=== PATIENT | male | born 1970 | race Caucasian/White ===

== ENCOUNTER 2022-05-15 10:11 | Emergency (ER) | payer BC, SELFPAY ==
--- NOTE | ~2022-05-15 | XR_ITS ---
EXAMINATION: XR CHEST CLINICAL INFORMATION: Shortness of breath. Worsens when lying down. COMPARISON: CXR from 06/10/2009 TECHNIQUE: 2 views of the chest were obtained. FINDINGS: Lungs are well expanded. No acute findings compared to prior chest radiograph. No pulmonary edema or consolidation. Chronic minimal pleural thickening of the right lateral costophrenic sulcus. Cardiac silhouette is mildly enlarged. No cephalization of pulmonary venous flow. Old, healed fracture of the mid third of left clavicle. Mild multilevel discovertebral degenerative change of the thoracic spine. XR/XR chest 2V IMPRESSION: Mild cardiomegaly. However, no evidence of active congestive heart failure.
[2022-05-15 10:22] VITALS: BP 150/86; PULSE 95; RESP 20; TEMP 36.6; O2SAT 99; BMI 30.8
[2022-05-15 11:55] VITALS: BP 131/84; PULSE 88; TEMP 37.1; O2SAT 98
--- NOTE | 2022-05-15 12:17 | ECG_ITS ---
Test Reason : SOB Blood Pressure : / mmHG Vent. Rate : 087 BPM Atrial Rate : 087 BPM P-R Int : 156 ms QRS Dur : 100 ms QT Int : 366 ms P-R-T Axes : 063 -14 100 degrees QTc Int : 440 ms Sinus rhythm with occasional Premature ventricular complexes Biatrial enlargement Left ventricular hypertrophy ( Fam product ) T wave abnormality, consider lateral ischemia Abnormal ECG No previous ECGs available Referred By: Grant Jaffe Electronically Signed By:Kenan Fox
[2022-05-15 13:09] LABS: Basophils Absolute Auto 0.2 X10*3/uL (0.0-0.2); Basophils Percent Auto 1.7 % (0-2); Eosinophils Absolute Auto 0.3 X10*3/uL (0.0-0.4); Eosinophils Percent Auto 2.7 % (0-4); Hemoglobin 14.9 g/dl (14.0-18.0); Imm Gran Abs Auto 0.05 X10*3/uL (0.00-0.03); Imm Gran Pct Auto 0.5 % (0.0-0.4); Lymphocytes Absolute Auto 2.5 X10*3/uL (1.2-4.9); Lymphocytes Percent Auto 22.9 % (20-40); MANUAL DIFF FLAG SCAN; Mean Corpuscular HGB Conc 29.2 g/dl (31.0-36.0); Mean Corpuscular Hemoglobin 20.1 pg (27.0-33.0); Mean Corpuscular Volume 68.6 fL (80.0-98.0); Mean Platelet Volume 10.4 fL (9.4-12.4); Monocytes Absolute Auto 1.5 X10*3/uL (0.1-1.2); Monocytes Percent Auto 13.6 % (2-11); Neutrophils Absolute Auto 6.5 x10*3/uL (2.0-8.3); Neutrophils Percent Auto 58.6 % (45-73); Platelet Count 379 X10*3/uL (160-400); Red Blood Count 7.43 X10*6/uL (4.60-5.80); Red Cell Distribution Width 20.8 % (11.0-16.0); SCAN SMEAR FLAG 1; White Blood Count 11.1 X10*3/uL (4.8-10.8)
[2022-05-15 13:17] LABS: INTERNATIONAL NORM RATIO 1.1 (0.9-1.1); Prothrombin Time 12.2 SEC (10.0-13.1)
[2022-05-15 13:19] LABS: D Dimer High Sensitivity 155 NG/ML
[2022-05-15 13:20] LABS: Partial Thromboplastin Time 32.3 SEC (26.0-36.4)
[2022-05-15 13:32] LABS: SLIDE REVIEW VERIFIED
[2022-05-15 13:33] LABS: Alanine Aminotransferase 35 U/L (0-40); Albumin Level 4.3 g/dL (3.5-5.0); Alkaline Phosphatase 61 U/L (39-117); Anion Gap 14 (12-20); Aspartate Amino Transferase 33 U/L (5-37); Bilirubin Total 0.7 mg/dL (0.0-1.0); Blood Urea Nitrogen 17 mg/dL (9-16); Calcium 8.7 mg/dL (8.4-10.2); Carbon Dioxide 27 mmol/L (22-29); Chloride 101 mmol/L (96-108); Creatinine Clr Calc Pharmacy 90.1; Estimated Glomerular Filt Rate > 60; Glucose Random 113 mg/dL (60-115); Sodium 137 mmol/L (135-145)
[2022-05-15 13:35] LABS: Troponin-I High Sensitivity 35.5 ng/L (<3.5-35.0)
[2022-05-15 13:39] LABS: B Type Natriuretic Peptide 123 pg/mL (<100)
[2022-05-15 13:44] LABS: Influenza A PCR NEGATIVE (Negative); Influenza B PCR NEGATIVE (Negative); Resp Syncy Virus RNA Qual PCR NEGATIVE (Negative); SARS COV2 PCR INHOUSE NEGATIVE (Negative)
[2022-05-15 14:41] VITALS: BP 118/79; PULSE 76; RESP 16; TEMP 36.9; O2SAT 97
[2022-05-15 16:29] LABS: Troponin-I High Sensitivity 31.8 ng/L (<3.5-35.0)
--- NOTE | 2022-05-15 16:44 | PC.NURSE ---
pt awaiting PA to come speak with them, troponin did go down on second lab draw
--- NOTE | 2022-05-15 16:46 | ED.GENADULT ---
HPI - General Adult General Chief complaint: Upper Respiratory Symptoms Stated complaint: Difficulty breathing Time Seen by Provider: 05/15/22 12:04 Source: patient Mode of arrival: ambulatory Limitations: no limitations History of Present Illness HPI narrative: 51-year-old male presents to ED for shortness of breath for the past 6 months due to COVID. Patient states since having COVID 6 months ago at times he will have random episodes of shortness of breath and then it will resolve. Patient states the last month or so he has had 2 sit-up or sleep sitting up. Patient states not able to tolerate lying flat. Patient denies any leg swelling, coughing up blood, chest pain, or pleurisy. Patient denies any fever or chills. Patient states no recent long travel, recent surgery, or any estrogen hormonal use. Patient states pretty healthy and works out. Related Data Previous Rx's Medication Instructions Recorded albuterol sulfate 90 mcg/actuation 2 puff inhalation Q4-6H PRN 05/15/22 aerosol inhaler shortness of breath or wheezing #8.5 grams Allergies Allergy/AdvReac Type Severity Reaction Status Date / Time No Known Allergies Allergy Unverified 01/22/20 15:59 Review of Systems Review of Systems: SOB for the past 6 months Yes all other systems are reviewed and are negative FORMERLY [facility], [facility]–1983 Social History Social History Advance Directives: No Advance Directives Information Provided: No Physical Exam ED Vital Signs: Vital Signs - 24 hr 05/15/22 10:22 05/15/22 11:55 05/15/22 14:41 Temperature 98 F 98.7 F 98.5 F Pulse Rate 95 88 76 Respiratory Rate 20 16 Blood Pressure 150/86 H 131/84 118/79 Pulse Oximetry 99 98 97 Oxygen Delivery Method Room Air Room Air Room Air BMI result Body Mass Index 30.8 Const General: cooperative, healthy appearing, comfortable, no acute distress, well developed, alert, awake and Physically active Orientation/consciousness: oriented to person, oriented to place, oriented to time and patient oriented x3 HENMT Head: Yes normal to inspection, Yes No palpable skull fracture present, Yes normocephalic, Yes atraumatic and No abrasion Eyes General: appearance normal, both eyes and all related structures Neck Neck: Yes normal visual inspection, Yes full ROM, Yes no lymphadenopathy, Yes no meningeal signs, Yes trachea midline, Yes supple, No anterior neck swelling and No tender Chest Chest palpation & inspection: normal inspection of the chest and normal palpation of entire chest wall Resp Effort & Inspection: normal respiratory effort and able to speak in complete sentences Auscultation: clear to auscultation bilaterally Cardio Jugular venous distension: no JVD Heart sounds: S1 normal heart sound present and S2 normal heart sound present GI Inspection: Yes normal to inspection and No abdominal wall ecchymosis Palpation (GI): Soft to palpation, not firm, nontender, no guarding and not rigid General: No CVA tenderness and Yes no CVA tenderness Back/Spine/Pelvis Back: no CVA tenderness, No CVA tenderness and No back tenderness Skin General skin exam: no rashes or lesions noted and elasticity normal Neuro General: oriented to person, oriented to place, oriented to time, patient oriented x3, gait normal, tone normal, moves all extremities, Normal light touch and pain sensation, no meningeal signs, no focal motor deficits, CN's II-XI intact bilaterally and normal sensation to monofilament Extrem Other: Bilateral lower extremities negative for swelling, pitting edema, calf tenderness General: Yes normal to inspection and Yes full ROM Psych Appearance: grossly normal, well kempt and not disheveled Course Course Course Narrative: Most likely patient has long haul COVID but we will do medical evaluation including EKG, troponin, BNP, chest x-ray, and D-dimer. Reevaluation(s) Reevaluation #1: D-dimer negative. Wells criteria is 0. Chest x-ray shows mild cardiomegaly but negative for signs of congestive heart failure. BNP 123. EKG negative STEMI. Troponins negative. Chest x-ray negative pneumonia. SARS negative. Patient has appointment this Sunday for his chronic shortness of breath for the past 6 months. Patient given copy of labs and imaging for follow-up Time: 16:54 Medications Administered Discontinued Medications Generic Name Dose Route Start Last Admin Trade Name Freq PRN Reason Stop Dose Admin Albuterol Sulfate 2 puff 05/15/22 17:01 05/15/22 17:20 Albuterol Sulfate 90 Mcg 8 Gm Inhaler INHALE 05/15/22 17:02 2 puff ONCE ONE Administration Medical Decision Making Medical Decision Making MDM Narrative: 51-year-old male with COVID 6 months ago presenting for shortness of breath for the past 6 months. Patient pretty healthy due to age will do cardiac evaluation. Patient not in distress. Patient well-appearing. Differential Diagnosis Differential Diagnoses: The differential diagnosis associated with the presentation includes (CHF, pneumonia, PE, mI, covid) Admission/Observation If patient worsens or meet medical admission criteria will observe for admit Lab Data MDM Lab Attestation statement: I reviewed the patient's lab results. 05/15/22 13:00 05/15/22 13:00 Labs: Lab Results 05/15/22 05/15/22 05/15/22 Range/Units 13:00 13:00 13:00 WBC 11.1 H (4.8-10.8) X10*3/uL RBC 7.43 H (4.60-5.80) X10*6/uL Hgb 14.9 (14.0-18.0) g/dl Hct 51.0 (42.0-52.0) % MCV 68.6 L (80.0-98.0) fL MCH 20.1 L (27.0-33.0) pg MCHC 29.2 L (31.0-36.0) g/dl RDW 20.8 H (11.0-16.0) % Plt Count 379 (160-400) X10*3/uL MPV 10.4 (9.4-12.4) fL Immature Gran % (Auto) 0.5 H (0.0-0.4) % Neut % (Auto) 58.6 (45-73) % Lymph % (Auto) 22.9 (20-40) % [place] % (Auto) 13.6 H (2-11) % Eos % (Auto) 2.7 (0-4) % Baso % (Auto) 1.7 (0-2) % Lymph # (Auto) 2.5 (1.2-4.9) X10*3/uL [place] # (Auto) 1.5 H (0.1-1.2) X10*3/uL Eos # (Auto) 0.3 (0.0-0.4) X10*3/uL Baso # (Auto) 0.2 (0.0-0.2) X10*3/uL Abs Immat Gran (auto) 0.05 H (0.00-0.03) X10*3/uL Absolute Neuts (auto) 6.5 (2.0-8.3) x10*3/uL Absolute Nucleated RBC 0.000 (0.0-0.012) X10*3/uL Nucleated RBC % (auto) 0.0 (0.0-0.2) /100WBC Smear Tech's Comments VERIFIED PT (10.0-13.1) SEC INR (0.9-1.1) APTT (26.0-36.4) SEC D-Dimer High Sensitivty 155 NG/ML Sodium 137 (135-145) mmol/L Potassium 5.0 (3.3-5.1) mmol/L Chloride 101 (96-108) mmol/L Carbon Dioxide 27 (22-29) mmol/L Anion Gap 14 (12-20) BUN 17 H (9-16) mg/dL Creatinine 1.11 (0.5-1.4) mg/dL Estim Creat Clear Calc 90.1 Estimated GFR > 60 Random Glucose 113 (60-115) mg/dL Calcium 8.7 (8.4-10.2) mg/dL Total Bilirubin 0.7 (0.0-1.0) mg/dL AST 33 (5-37) U/L ALT 35 (0-40) U/L Alkaline Phosphatase 61 (39-117) U/L Troponin I High Sens (<3.5-35.0) ng/L B-Natriuretic Peptide (<100) pg/mL Total Protein 7.0 (6.5-8.0) g/dL Albumin 4.3 (3.5-5.0) g/dL Influenza Type A (PCR) (Negative) Influenza Type B (PCR) (Negative) RSV RNA Qual (PCR) (Negative) SARS-CoV-2 RNA (RT-PCR) (Negative) 05/15/22 05/15/22 05/15/22 Range/Units 13:00 13:00 13:00 WBC (4.8-10.8) X10*3/uL RBC (4.60-5.80) X10*6/uL Hgb (14.0-18.0) g/dl Hct (42.0-52.0) % MCV (80.0-98.0) fL MCH (27.0-33.0) pg MCHC (31.0-36.0) g/dl RDW (11.0-16.0) % Plt Count (160-400) X10*3/uL MPV (9.4-12.4) fL Immature Gran % (Auto) (0.0-0.4) % Neut % (Auto) (45-73) % Lymph % (Auto) (20-40) % [place] % (Auto) (2-11) % Eos % (Auto) (0-4) % Baso % (Auto) (0-2) % Lymph # (Auto) (1.2-4.9) X10*3/uL [place] # (Auto) (0.1-1.2) X10*3/uL Eos # (Auto) (0.0-0.4) X10*3/uL Baso # (Auto) (0.0-0.2) X10*3/uL Abs Immat Gran (auto) (0.00-0.03) X10*3/uL Absolute Neuts (auto) (2.0-8.3) x10*3/uL Absolute Nucleated RBC (0.0-0.012) X10*3/uL Nucleated RBC % (auto) (0.0-0.2) /100WBC Smear Tech's Comments PT (10.0-13.1) SEC INR (0.9-1.1) APTT (26.0-36.4) SEC D-Dimer High Sensitivty NG/ML Sodium (135-145) mmol/L Potassium (3.3-5.1) mmol/L Chloride (96-108) mmol/L Carbon Dioxide (22-29) mmol/L Anion Gap (12-20) BUN (9-16) mg/dL Creatinine (0.5-1.4) mg/dL Estim Creat Clear Calc Estimated GFR Random Glucose (60-115) mg/dL Calcium (8.4-10.2) mg/dL Total Bilirubin (0.0-1.0) mg/dL AST (5-37) U/L ALT (0-40) U/L Alkaline Phosphatase (39-117) U/L Troponin I High Sens 35.5 H (<3.5-35.0) ng/L B-Natriuretic Peptide 123 H (<100) pg/mL Total Protein (6.5-8.0) g/dL Albumin (3.5-5.0) g/dL Influenza Type A (PCR) NEGATIVE (Negative) Influenza Type B (PCR) NEGATIVE (Negative) RSV RNA Qual (PCR) NEGATIVE (Negative) SARS-CoV-2 RNA (RT-PCR) NEGATIVE (Negative) 05/15/22 05/15/22 Range/Units 13:00 15:59 WBC (4.8-10.8) X10*3/uL RBC (4.60-5.80) X10*6/uL Hgb (14.0-18.0) g/dl Hct (42.0-52.0) % MCV (80.0-98.0) fL MCH (27.0-33.0) pg MCHC (31.0-36.0) g/dl RDW (11.0-16.0) % Plt Count (160-400) X10*3/uL MPV (9.4-12.4) fL Immature Gran % (Auto) (0.0-0.4) % Neut % (Auto) (45-73) % Lymph % (Auto) (20-40) % [place] % (Auto) (2-11) % Eos % (Auto) (0-4) % Baso % (Auto) (0-2) % Lymph # (Auto) (1.2-4.9) X10*3/uL [place] # (Auto) (0.1-1.2) X10*3/uL Eos # (Auto) (0.0-0.4) X10*3/uL Baso # (Auto) (0.0-0.2) X10*3/uL Abs Immat Gran (auto) (0.00-0.03) X10*3/uL Absolute Neuts (auto) (2.0-8.3) x10*3/uL Absolute Nucleated RBC (0.0-0.012) X10*3/uL Nucleated RBC % (auto) (0.0-0.2) /100WBC Smear Tech's Comments PT 12.2 (10.0-13.1) SEC INR 1.1 (0.9-1.1) APTT 32.3 (26.0-36.4) SEC D-Dimer High Sensitivty NG/ML Sodium (135-145) mmol/L Potassium (3.3-5.1) mmol/L Chloride (96-108) mmol/L Carbon Dioxide (22-29) mmol/L Anion Gap (12-20) BUN (9-16) mg/dL Creatinine (0.5-1.4) mg/dL Estim Creat Clear Calc Estimated GFR Random Glucose (60-115) mg/dL Calcium (8.4-10.2) mg/dL Total Bilirubin (0.0-1.0) mg/dL AST (5-37) U/L ALT (0-40) U/L Alkaline Phosphatase (39-117) U/L Troponin I High Sens 31.8 (<3.5-35.0) ng/L B-Natriuretic Peptide (<100) pg/mL Total Protein (6.5-8.0) g/dL Albumin (3.5-5.0) g/dL Influenza Type A (PCR) (Negative) Influenza Type B (PCR) (Negative) RSV RNA Qual (PCR) (Negative) SARS-CoV-2 RNA (RT-PCR) (Negative) Independent Interpretation I performed an independent interpretation of an: EKG Interpretation: Sinus rhythm with occasional PVCs. Reticular 87. Pr interval 156. QRS 100. QTC 440. Negative STEMI Radiology Impression Discussion of test interpretation with radiology: I have reviewed the radiologist's reading. (mild cardiomegaly. no CHF or pneumonia) Prescription Management I considered prescription management with: Other (albuterol inhaler) Discharge Plan Discharge Clinical Impression: Dyspnea Patient Disposition: Home, Self-Care Instructions: How to Use a Metered-Dose Inhaler (ED), Dyspnea (ED) Additional Instructions: You will be given copy of the blood work, EKG, and chest x-ray for follow-up with the primary care provider. Return to the ED for any leg swelling, calf pain, coughing up blood, fever, chills, chest pain, shortness of breath, dizziness, passing out, or any other concerning symptoms. You will be discharged with albuterol inhaler. Prescriptions: New albuterol sulfate 90 mcg/actuation HFA aerosol inhaler 2 puff inhalation Q4-6H PRN (Reason: shortness of breath or wheezing) Qty: 8.5 0RF Referrals: Hasmukh Osorio MD [Physician] - (SOB for 6 months. Ritchie aparicio) Interventions: ED Discharge Assessment Last Done: 05/15/22 17:20 Discharge Date/Time: 05/15/22 17:21 Print Language: Pakistani
[2022-05-15] MEDS: Albuterol Sulfate 90 MCG 8 GM INHALER 2 PUFF INHALE (17:20)
== END 2022-05-15 17:21 | disposition home or self-care (01) ==
PROVIDERS: Physician Assistant; Emergency Provider Student in an Organized Health Care Education/Training Program
DX: R06.02 Shortness of breath (principal); Z20.822 Contact with and (suspected) exposure to COVID-19; Z20.828 Contact with and (suspected) exposure to other viral communicable diseases
CPT/HCPCS: 0241U; 36415; 71046; 80053; 83880; 84484; 85025; 85379; 85610; 85730; 93005; 99284

== ENCOUNTER 2025-01-28 08:40 | Outpatient (REF) | payer MEDICAID, SELFPAY ==
--- OUTSIDE RECORDS SUMMARY | 2025-01-27 09:00 | XMS_ITS | Encounter Summary ---
Author Organization [employer] Address [address] [facility] [address] [place] [address] Care Team Providers Care Marine Erector Name Role Phone Darinel Metcalf MD Primary Care Prov ider Encounter Details Date Type Department Care Team ([facility] st Contact Info) Description 01/27/2025 9:00 AM EDT Office Visit [facility] [address] [place], [place] [phone] Darinel Metcalf MD [address] [place] [address] Chronic congestive heart failure, unspecified heart failure type (CMS/HCC) (Primary Dx); Drug-induced erectile dysfunction Social History Tobacco Use Types Packs/Day Years Used Date Smoking Tobacco: Never Passive Smoke Exposure: Never Smokeless Tobacco: Never Alcohol Use Standard Drinks/Week Comments Never 0 (1 standard drink = 0.6 oz pur e alcohol) Depression Answer Date Recorded Patient Health Questionnaire-9 Score 0 10/21/2024 Patient Health Questionnaire-9 Score 0 10/21/2024 Last PHQ-9: Questionnaire Data Not on file 0 10/21/2024 Housing Stability Answer Date Recorded What is your housing situation today? I have wanda soto 01/20/[address] you li ve. Do you have problems with any of the following? None of the above;I am not sure 01/20/2025 Food Insecurity Answer Date Recorded Within the past 12 months, y ou worried that your food would run out before you got money to buy more: Never True 01/20/2025 Within the past 12 months,th e food you bought just didn't last and you didn't have enough money to get more: Never True Transportation Answer Date Recorded In the past 12 months, has l ack of transportation kept you from medical appts, meetings, work or from getting things needed for daily living? No 01/20/2025 Utilities Answer Date Recorded In the past 12 months, has t he electric, gas, oil or water company threatened to shut off services in your home? No 01/20/2025 Depression Answer Date Recorded Patient Health Questionnaire-2 Score 0 10/21/2024 Internet Access Answer Date Recorded Internet Access Q1 Yes 01/20/2025 Internet Access Q2 Not on file 01/20/2025 Sex and Gender Information Value Date Recorded Sex Assigned at Male 03/06/2022 10:27 AM EDT Legal Sex Male 10:27 AM EDT Gender Identity Male 03/06/2022 10:27 AM EDT Sexual Orientation Don't know 03/06/2022 10 :27 AM EDT documented as of this encounter Last Filed Vital Signs Vital Sign Reading Time Taken Comments Blood Pressure 110/64 01/27/2025 9:08 AM EDT Pulse 92 01/27/2025 9:08 AM EDT Temperature 36.7 C (98 F) 01/27/2025 9:08 AM EDT Respiratory Rate 20 01/27/2025 9:08 AM EDT Oxygen Saturation - - Inhaled Oxygen Concentration - - Weight 89.8 kg (198 lb) 01/27/2025 9:08 AM EDT Height 177.8 cm (5' 10 ) 01/27/2025 9:08 AM EDT Body Mass Index 28.41 01/27/2025 9:08 AM EDT documented in this encounter Progress Notes * Darinel Franz MD - 01/27/2025 9:00 AM EDT Subjective Patient ID: Aravind Vergara is a 54 y.o. male who presents for No chief complaint on file.. Hypertension This is a chronic problem. The problem is controlled. Pertinent negatives include no chest pain, headaches, palpitations, peripheral edema or shortness of breath. Review of Systems Respiratory: Negative for shortness of breath. Cardiovascular: Negative for chest pain and palpitations. Neurological: Negative for headaches. Objective Physical Exam Constitutional: Appearance: Normal appearance. Cardiovascular: Rate and Rhythm: Normal rate. Heart sounds: No murmur heard. Pulmonary: Effort: Pulmonary effort is normal. No respiratory distress. Breath sounds: No stridor. No wheezing or rhonchi. Abdominal: General: Abdomen is flat. There is no distension. Palpations: There is no mass. Tenderness: There is no abdominal tenderness. Hernia: No hernia is present. Neurological: General: No focal deficit present. Mental Status: He is alert and oriented to person, place, and time. Psychiatric: Mood and Affect: Mood normal. Behavior: Behavior normal. Assessment/Plan Problem List Items Addressed This Visit Chronic congestive heart failure, unspecified heart failure type (CMS/HCC) - Primary Followed by cardiology, no changes will be made, no chest pain or shortness of breath reported Relevant Medications tadalafil (Cialis) 10 MG tablet Other Relevant Orders CBC auto differential Comprehensive Metabolic Panel Lipid Panel, Standard TSH W/Reflex to FT4 HIV-1/2 Antigen and Antibodies, Fourth Generation, with Reflexes Hepatitis C Antibody with Reflex to HCV, RNA, Quantitative, Real-Time PCR PSA, Total With Reflex to PSA, Free Testosterone, Free (Dialysis) And Total, MS Drug-induced erectile dysfunction Will change to cialis to be taken daily and to take an extra dose the day of activity, call back ifnot improving documented in this encounter Miscellaneous Notes * Assessment & Plan Note - Darinel Franz MD - 01/27/2025 9:38 AM EDTAssociated Problem(s): Drug-induced erectile dysfunction Will change to cialis to be taken daily and to take an extra dose the day of activity, call back ifnot improving * Assessment & Plan Note - Darinel Franz MD - 01/27/2025 9:38 AM EDTAssociated Problem(s): Chronic congestive heart failure, unspecified heart failure type (CMS/HCC) Followed by cardiology, no changes will be made, no chest pain or shortness of breath reported documented in this encounter Plan of Treatment Upcoming Encounters Date Type Department Care Team (Late st Contact Info) Description 02/02/2025 1:30 PM EDT Office Visit [facility] [address] [place] [address] Lonny John MD [address] [place], [place] [phone] 03/30/2025 2:30 PM EST Office Visit [facility] [address], [place] [phone] Lonny John MD [address] [place], [place] [phone] Scheduled Orders Name Type Priority Associated Diagnoses Orde r Schedule CBC auto differential Lab Routine Chronic congestive heart failure, unspecified heart failure type (CMS/HCC) Expected: 01/27/2025 (Approximate), Expires: 01/27/2026 Comprehensive Metabolic Panel Lab Routine Chronic congestive heart failure, unspecified heart failure type (CMS/HCC) Expected: 01/27/2025 (Approximate), Expires: 01/27/2026 Lipid Panel, Standard Lab Routine Chronic congestive heart failure, unspecified heart failure type (CMS/HCC) Expected: 01/27/2025 (Approximate), Expires: 01/27/2026 TSH W/Reflex to FT4 Lab Routine Chronic congestive heart failure, unspecified heart failure type (CMS/HCC) Expected: 01/27/2025 (Approximate), Expires: 01/27/2026 HIV-1/2 Antigen and Antibodies, Fourth Generation, with Reflexes Lab Routine Chronic congestive heart failure, unspecified heart failure type (CMS/HCC) Expected: 01/27/2025 (Approximate), Expires: 01/27/2026 Hepatitis C Antibody with Reflex to HCV, RNA, Quantitative, Real-Time PCR Lab Routine Chronic congestive heart failure, unspecified heart failure type (CMS/HCC) Expected: 01/27/2025, Expires: 01/27/2026 PSA, Total With Reflex to PSA, Free Lab Routine Chronic congestive heart failure, unspecified heart failure type (CMS/HCC) Expected: 01/27/2025 (Approximate), Expires: 01/27/2026 Testosterone, Free (Dialysis) And Total, MS Lab Routine Chronic congestive heart failure, unspecified heart failure type (CMS/HCC) Expected: 01/27/2025 (Approximate), Expires: 01/27/2026 documented as of this encounter Goals Goal Patient Goal Type Associated Problems Recent Progress Patient-Stated? Author Increase coping skills to promote long-term recovery and improve ability to perform daily activities General María Carrasco RN documented as of this encounter Visit Diagnoses Diagnosis Chronic congestive heart failure, unspecified heart failure type (CMS/HCC)- Primary Drug-induced erectile dysfunction documented in this encounter Additional Health Concerns Assessment Noted Time PHQ-9 Depression Total Score: 0 10/22/19 25 10:00 AM EDT documented as of this encounter Care Teams Marine Erector Relationship Specialty Start Date End Date Darinel Metcalf MD [address] [place] [id number] PCP - General Internal Medicine 09/26/19 documented as of this encounter
--- OUTSIDE RECORDS SUMMARY | 2025-01-28 09:44 | XMS_ITS | Encounter Summary ---
Author Organization [employer] Address [address] [facility] [address] [place] [address] Care Team Providers Care Visual Effects Artist Name Role Phone Darinel Metcalf MD Primary Care Prov ider Reason for Visit * Reason Comments Med Refill Encounter Details Date Type Department Care Team (Late st Contact Info) Description 11/28/[address] [facility] [address] [place] [address] Darinel Metcalf MD [address] [place] [address] Social History Tobacco Use Types Packs/Day Years Used Date Smoking Tobacco: Never Passive Smoke Exposure: Never Smokeless Tobacco: Never Alcohol Use Standard Drinks/Week Comments Never 0 (1 standard drink = 0.6 oz pur e alcohol) Depression Answer Date Recorded Patient Health Questionnaire-9 Score 0 10/21/2024 Patient Health Questionnaire-9 Score 0 10/21/2024 Last PHQ-9: Questionnaire Data Not on file 0 10/21/2024 Depression Answer Date Recorded Patient Health Questionnaire-2 Score 0 10/21/2024 Sex and Gender Information Value Date Recorded Sex Assigned at Male 03/06/2022 10:27 AM EDT Legal Sex Male 10:27 AM EDT Gender Identity Male 03/06/2022 10:27 AM EDT Sexual Orientation Don't know 03/06/2022 10 :27 AM EDT documented as of this encounter Plan of Treatment Upcoming Encounters Date Type Department Care Team (Late Contact Info) Description 02/02/2025 1:30 PM EDT Office Visit [facility] [address] [place] [address] Lonny John MD [address] [place], [place] [phone] 03/30/2025 2:30 PM EST Office Visit [facility] [address] [place] [address] Lonny John MD [address] [place], [place] [phone] documented as of this encounter Goals Goal Patient Goal Type Associated Problems Recent Progress Patient-Stated? Author Increase coping skills to promote long-term recovery and improve ability to perform daily activities General María Carrasco, DIANA documented as of this encounter Visit Diagnoses Not on filedocumented in this encounter Additional Health Concerns Assessment Noted Time PHQ-9 Depression Total Score: 0 10/22/19 25 10:00 AM EDT documented as of this encounter Care Teams Visual Effects Artist Relationship Specialty Start Date End Date Darinel Metcalf MD [address] [place] [address] PCP - General Internal Medicine 09/26/19 documented as of this encounter
--- OUTSIDE RECORDS SUMMARY | 2025-01-28 09:45 | XMS_ITS | Encounter Summary ---
Author Organization [employer] Address [address] [facility] [address] [place] [address] Care Team Providers Care Clothing Worker Name Role Phone Darinel Metcalf MD Primary Care Prov ider Encounter Details Date Type Department Care Team (Latest Contact Info) Description 01/27/2025 Travel Social History Tobacco Use Types Packs/Day Years [...] Description 02/02/2025 1:30 PM EDT Office Visit [facility] [address] [place], [place] [phone] Lonny John MD [address] [place] [address] 03/30/2025 2:30 PM EST Office Visit [facility] [address] [place] [address] Lonny John MD [address] [place] [address] documented as of this encounter Goals Goal Patient Goal Type Associated Problems Recent Progress Patient-Stated? Author Increase coping skills to promote long-term recovery and improve ability to perform daily activities General No María Chandler, RN documented as of this encounter Visit Diagnoses Not on filedocumented in this encounter Additional Health Concerns Assessment Noted Time PHQ-9 Depression Total Score: 0 10/22/19 25 10:00 AM EDT documented as of this encounter Care Teams Clothing Worker Relationship Specialty Start Date End Date Darinel Metcalf MD [address] [place], [place] [phone] PCP - General Internal Medicine 09/26/19 documented as of this encounter
--- OUTSIDE RECORDS SUMMARY | 2025-01-28 09:45 | XMS_ITS ---
Author Name [facility] Organization Unknown Care Team Organization Name Specialty Phone Email Start Date End Da te [facility] Rajiv Jacome Primary Care 09/11/202212/[address] [facility] Sandra Gabriel Primary Care 03/14/202212/23
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
--- OUTSIDE RECORDS SUMMARY | 2025-01-28 09:45 | XMS_ITS | Encounter Summary ---
Author Organization [employer] Address [address] [facility] [address] [place] [address] Care Team Providers Care Hybrid Powertrain Development Engineer Name Role Phone Darinel Metcalf MD Primary Care Prov ider Encounter Details Date Type Department Care Team ([facility] Contact Info) Description 12/26/2023 Orders Only [facility] [address] [place] [id number] Renetta Damon MD [address] [place] [id number] Opioid dependence, uncomplicated (CMS/LTAC, [facility]) Social History Tobacco Use Types Packs/Day Years Used Date Smoking Tobacco: Never Assessed Sex and Gender Information Value Date Recorded Sex Assigned at Male 03/06/2022 10:27 AM EDT Legal Sex Male 10:27 AM EDT Gender Identity Male 03/06/2022 10:27 AM EDT Sexual Orientation Don't know 03/06/2022 10 :27 AM EDT documented as of this encounter Plan of Treatment Upcoming Encounters Date Type Department Care Team (Late Contact Info) Description 02/02/2025 1:30 PM EDT Office Visit [facility] [address] [place] [address] Lonny John MD [address] [place] [phone] 03/30/2025 2:30 PM EST Office Visit [facility] [address] [place] [address] Lonny John MD [address] [place] [phone] documented as of this encounter Visit Diagnoses Diagnosis Opioid dependence, uncomplicated (CMS/HCC) documented in this encounter Care Teams Hybrid Powertrain Development Engineer Relationship Specialty Start Date End Date Darinel Metcalf MD [address] [place] [address] PCP - General Internal Medicine 09/26/19 documented as of this encounter
--- OUTSIDE RECORDS SUMMARY | 2025-01-28 09:45 | XMS_ITS | Clinical Summary ---
Author Organization [facility] Address [address] [facility] [address] [place] [phone] Phone Care Team Providers Care National Recruiter Name Role Phone Sandra Beltrán MD Primary Care Provider [phone] Allergies No known active allergies Medications erythromycin (ROMYCIN) ophthalmic ointment Place 0.5 inches into the left eye every 6 (six) hours. 3.5 g 1 12/07/2021 Active Social History Tobacco Use Types Packs/Day Years Used Date Smoking Tobacco: Never Assessed Education Answer Date Recorded Are you interested in more education? Not on susi e 09/01/2022 Are you concerned about learning? Not on file 09/01/2022 No 09/01/2022 No 09/01/2022 Digital Access Answer Date Recorded No 10/02/2022 No 10/02/2022 Reliable internet access at home? Not on file 10/02/2022 Device with a working camera? Not on file Sex and Gender Information Value Date Recorded Sex Assigned at Not on file Legal Sex Male 9:36 PM EDT Gender Identity Not on file Sexual Orientation Not on file Last Filed Vital Signs Vital Sign Reading Time Taken Comments Blood Pressure 144/87 12/07/2021 11:34 AM EDT Pulse 89 12/07/2021 11:34 AM EDT Temperature 36.5 C (97.7 F) 12/07/2021 11:34 AM EDT Respiratory Rate 20 12/07/2021 11:34 AM EDT Oxygen Saturation 99% 12/07/2021 11:34 AM EDT Inhaled Oxygen Concentration - - Weight 99.8 kg (220 lb) 12/07/2021 11:34 AM EDT Height 177.8 cm (5' 10 ) 12/07/2021 11:34 AM EDT Body Mass Index 31.57 12/07/2021 11:34 AM EDT Plan of Treatment Health Maintenance Due Date Last Done Comments LIPID PANEL 1968 DEPRESSION SCREENING 1980 SMOKING Hx and SMOKELESS TOB ACCO SCREENING 1981 HEPATITIS C SCREENING 1986 HIV ONE-TIME SCREENING (18-6 5 YEARS) 1986 COLOGUARD 2013 COLONOSCOPY 2013 COLORECTAL CANCER SCREENING 2013 FIT TEST 2013 FOBT 2013 SIGMOIDOSCOPY 2013 VIRTUAL COLONOSCOPY 2013 PNEUMOCOCCAL VACCINES (50+ y ears) (1 of 1 - PCV) 2018 ZOSTER VACCINES (1 of 2) 2018 Adult Td,Tdap Booster 07/30/2024 07/30/2014 INFLUENZA VACCINE (#1) 2024 COVID-19 VACCINE (1 - 2023-2 5 season) 2025 HEPATITIS A VACCINES Aged Out No long er eligible based on patient's age to complete this topic HIB VACCINES Aged Out No longer eligi ble based on patient's age to complete this topic MENINGOCOCCAL VACCINES (ACWY) Aged Out No longer eligible based on patient's age to complete this topic MENINGOCOCCAL VACCINES (B) Aged Out N o longer eligible based on patient's age to complete this topic Medical Devices Not on file Insurance [employer] LIMITED NETWORK HMO NETWORK O NETWORK O NETWORK O [employer] LIMITED NETWORK HMO simple[employer] [facility] LIMITED NETWORK HMO [employer] LIMITED NETWORK HMO BLUE [employer]OSS [employer] LIMITED NETWORK HMO NETWORK HMO AIM [employer]URANCE Care Teams National Recruiter Relationship Specialty Start Date End Date Sandra Beltrán MD [address] [place] [address] PCP - General 06/13/21 Additional Source Comments The information contained in this document represents components of the legal health record. It is not the complete legal health record.[facility]
--- OUTSIDE RECORDS SUMMARY | 2025-01-28 09:45 | XMS_ITS | Clinical Summary ---
Author Organization [employer] Address [address] [facility] 7t [place] [address] Care Team Providers Care Fuel Pilot Engineer Name Role Phone Darinel Metcalf MD Primary Care Prov ider Allergies No known active allergies Medications Multiple Vitamins-Mineral s (MENS MULTIPLUS PO) Mens MultiPlus A ctive naloxone (Narcan) 4 mg/0.1 mL nasal spray Administer 0.1 mL into affected nostril(s). 020 Active omeprazole OTC (PriLOSEC OTC) 20 MG EC tablet 1 tablet in the morning. Active betamethasone valerate (Valisone) 0.1 % cream Apply topically if needed in the morning and at bedtime (dryness). 45 g 2 025 Active clotrimazole (Lotrimin) 1 % cream Apply topically 2 times daily. 90 g 3 025 Active Buprenorphine HCl-Naloxone HCl (Suboxone) 8-2 MG SL filmIndications: Opioid dependence, uncomplicated (CMS/HCC) Place 1 Film under the tongue 2 times daily. 56 Film 2 025 2024 Active tadalafil (Cialis) 10 MG tablet Take 1 tablet (10 mg) by mouth if needed each day for erectile dysfunction. 60 tablet 3 025 2024 Active sildenafil (Viagra) 50 MG tablet Take 1 tablet (50 mg) by mouth if needed each day for erectile dysfunction. 30 tablet 025 2024 Discontinued sildenafil (Viagra) 50 MG tablet TAKE 1 TABLET (50 MG) BY MOUTH DAILY NEEDED FOR ERECTILE DYSFUNCTION 30 tablet 025 2024 Discontinued(I neffective) Active Problems Problem Noted Date Diagnosed Date Drug-induced erectile dysfunction 11/10/2024 Assessment & Plan (01/27/2025 9:38 AM EDT): Will change to cialis to be taken daily and to take an extra dose the day of activity, call back if not improving Assessment & Plan (11/10/2024 1:49 PM EDT): Patient noticed worsening of symptoms after metoprolol dose increased, he disscussed with symptoms with his cloth calender but the benefits of the treatment were superior to the side effects. Will start on sildenafil as needed, call back if not improving Encounter for medical examination to establish c are 10/21/2024 Assessment & Plan (10/21/2024 10:17 AM EDT): Last pcp visit more than 2 years ER: - Hospitalization:- Pmhx: cardiomyopathy, rash Pshx: ICD 18 months ago ALL:- Meds: prilosec, multivitamin, entresto 49/51, metoprolol 50mg daily, farxiga 10mg, spironolactone 25mg daily, furosemide 20mg BID Colonoscopy done 5 years ago, will refer to GI Opioid type dependence, continuous 10/21/2024 Chronic congestive heart alexis lure, unspecified heart failure type 10/21/2024 Assessment & Plan (01/27/2025 9:38 AM EDT): Followed by cardiology, no changes will be made, no chest pain or shortness of breath reported Assessment & Plan (10/21/2024 10:39 AM EDT): Followed by cardiology, s/p icd placed 18 months ago, on entresto, spironolactone, metoprolol and farxiga S/P ICD (internal cardiac defibrillator) procedu re 10/21/2024 Erythrocytosis 10/15/2017 Gastroesophageal reflux disease 07/30/2014 Assessment & Plan (10/21/2024 10:38 AM EDT): On prilosec, no changes will be made, reinforced lifestyle modifications Low back pain 07/30/2014 Encounters Date Type Department Care Team Description 01/27/2025 9:00 AM EDT Office Visit [facility] [address] [place] [address] Darinel Metcalf MD Chronic congestive heart failure, unspecified heart failure type (CMS/HCC) (Primary Dx); Drug-induced erectile dysfunction 01/27/2025 Travel 01/23/2025 Telephone [facility] [address] [place] [address] Darinel Metcalf MD chart prep 01/20/2025 Patient Outreach [facility] [address] [place] [address] Darinel Metcalf MD Pre-visit Planning (SDOH screening negative and Tobacco screening negative) 01/04/2025 Refill [facility] [address] [place] [address] Katie Salgado MD 12/22/2024 Telephone [facility] [address] [place] [address] Darinel Metcalf MD No Show 12/22/2024 Telephone [facility] [address] [place] [address] Darinel Metcalf MD 12/22/2024 Travel 12/19/2024 Telephone [facility] [address] [place] [address] Darinel Metcalf MD chart prep 11/28/2024 Refill [facility] [address] [place] [address] Darinel Metcalf MD 11/28/2024 Refill [facility] [address] [place] [address] Darinel Metcalf MD 11/10/2024 1:30 PM EDT Office Visit [facility] [address] [place] [address] Lonny John MD Opioid dependence, uncomplicated (CMS/HCC) (Primary Dx) 11/10/2024 11:15 AM EDT Office Visit [facility] [address] [place] [address] Darinel Metcalf MD Drug-induced erectile dysfunction (Primary Dx) 11/10/2024 Travel 11/10/2024 Telephone [facility] [address] [place] [address] Darinel Metcalf MD Nurse Triage 11/03/2024 Telephone [facility] [address] [place] [address] Darinel Metcalf MD requesting call back] from Last 3 Months Immunizations Immunization Administration Dates Next Due Tdap 07/30/2014 Family History Medical History Relation Name Comments Breast cancer Mother Relation Name Status Comments Mother Social History Tobacco Use Types Packs/Day Years Used Date Smoking Tobacco: Never Passive Smoke Exposure: Never Smokeless Tobacco: Never Tobacco Cessation:Counseling Given: Not Answered Alcohol Use Standard Drinks/Week Comments Never 0 [...] Don't know 03/06/2022 10 :27 AM EDT Last Filed Vital Signs Vital Sign Reading Time Taken Comments Blood Pressure 110/64 01/27/2025 9:08 AM EDT Pulse 92 01/27/2025 9:08 AM EDT Temperature 36.7 C (98 F) 01/27/2025 9:08 AM EDT Respiratory Rate 20 01/27/2025 9:08 AM EDT Oxygen Saturation 98% 11/10/2024 11:25 AM EDT Inhaled Oxygen Concentration - - Weight 89.8 kg (198 lb) 01/27/2025 9:08 AM EDT Height 177.8 cm (5' 10 ) 01/27/2025 9:08 AM EDT Body Mass Index 28.41 01/27/2025 9:08 AM EDT Plan of Treatment Upcoming Encounters Date Type Department Care Team (Late st Contact Info) Description 02/02/2025 1:30 PM EDT Office Visit [facility] [address] [place] [address] Lonny John MD [address] [place] [address] 03/30/2025 2:30 PM EST Office Visit [facility] [address] [place] [address] Lonny oJhn MD [address] [place] [address] Health Maintenance Due Date Last Done Comments CT Colonography 1968 Colonoscopy 1968 Colorectal Cancer Screening 1968 FIT DNA/Cologuard 1968 FIT 1968 FOBT 1968 HIV Screening 1968 Lipid Panel 1968 Sigmoidoscopy 1968 HIB Vaccines (1 of 1 - Risk 1-dose series) 01/17/1970 Meningococcal Vaccine (1 - Risk 2-dose series) 1970 Meningococcal B Vaccine (1 o f 5 - Increased Risk) 1978 Hepatitis C Screening 1986 Hepatitis B Vaccines (1 of 3 - 19+ 3-dose series) 10/18/1987 Pneumococcal Vaccine: 50+ Years (1 of 2 - PCV) 10/18/1987 Zoster Vaccines (1 of 2) 2018 DTaP/Tdap/Td Vaccines (2 - T d or Tdap) 07/30/2024 07/30/2014, 05/07/2008 COVID-19 Vaccine (1 - 2023-2 5 season) 2025 Influenza Vaccine (#1) 2025 Depression Screening 10/21/2025 10/21/2024, 10/21/2024 Tobacco Screening 11/10/2025 11/10/2024 SDOH Screening 01/20/2026 01/20/2025 Alcohol/Substance Use Screening 01/27/2026 01/27/2025 Disability Screening 01/27/2026 01/27/2025 RSV Patients and Patients Aged 60 years or older (1 - 1-dose 75+ series) 10/18/2043 HPV Vaccines Aged Out No longer eligi ble based on patient's age to complete this topic Hepatitis A Vaccines Aged Out No long er eligible based on patient's age to complete this topic IPV Vaccines Aged Out No longer eligi ble based on patient's age to complete this topic RSV under 20 months Aged Out No longe r eligible based on patient's age to complete this topic Rotavirus Vaccines Aged Out No longer eligible based on patient's age to complete this topic Goals Goal Patient Goal Type Associated Problems Recent Progress Patient-Stated? Author Increase coping skills to promote long-term recovery and improve ability to perform daily activities General No María Chandler, RN Insurance [facility] C3 Care Teams Fuel Pilot Engineer Relationship Specialty Start Date End Date Darinel Metcalf MD [address] [place] [phone] PCP - General Internal Medicine 09/26/19
--- OUTSIDE RECORDS SUMMARY | 2025-01-28 09:45 | XMS_ITS | Encounter Summary ---
Author Organization [facility] Address [address] [facility] [address] [place] [address] Phone Care Team Providers Care Theoretical Physics Teacher Name Role Phone Sandra Beltrán MD Primary Care Provider [phone] Encounter Details Date Type Department Care Team (Late st Contact Info) Description 12/07/2021 Procedure [facility], Ct Scan - [address] [address] Social History Tobacco Use Types Packs/Day Years Used Date Smoking Tobacco: Never Assessed Sex and Gender Information Value Date Recorded Sex Assigned at Not on file Legal Sex Male 9:36 PM EDT Gender Identity Not on file Sexual Orientation Not on file documented as of this encounter Functional Status * Calculated C-SSRS Risk Score (Lifetime/Recent) Answer Date of Assessment Author No Risk Indicated 12/07/2021 11:36 AM EDT Kitty Deleon RN * [place] Suicide Severity Rating Scale (Screener/Recent Self-Report) Question Answer Date of Assessment Author 1. Wish to be (Past 1 Month) No 12/07/2021 11:36 AM EDT Kitty Sutherland RN 2. Non-Specific Active Suici joseph Thoughts (Past 1 Month) No 12/07/2021 11:36 AM EDT Edel Sutherland cia, RN 6. Suicidal Behavior (Lifetime) No 11:36 AM EDT Kitty Sutherland RN documented as of this encounter Plan of Treatment Not on file documented as of this encounter Visit Diagnoses Not on filedocumented in this encounter Care Teams Theoretical Physics Teacher Relationship Specialty Start Date End Date Sandra Beltrán MD [address] [place] [address] PCP - General 06/13/21 documented as of this encounter Additional Source Comments The information contained in this document represents components of the legal health record. It is not the complete legal health record.[facility]
--- OUTSIDE RECORDS SUMMARY | 2025-01-28 09:45 | XMS_ITS | Encounter Summary ---
Author Organization [employer] Address [address] [place] [address] [address] [place] [address] Care Team Providers Care Cigar Patcher Name Role Phone Darinel Metcalf MD Primary Care Prov ider Reason for Visit * Reason Comments Med Refill Encounter Details Date Type Department Care Team ([facility] st Contact Info) Description 02/21/2024 Refill [facility] [address] [place] [address] Renetta Damon MD [address] [place] [address] Opioid dependence, uncomplicated (CMS/HCC) Social History Tobacco Use Types Packs/Day Years [...] Description 02/02/2025 1:30 PM EDT Office Visit [facility] [address] [place], [place] [phone] Lonny John MD [address] [place] [address] 03/30/2025 2:30 PM EST Office Visit [facility] [address] [place], [place] [phone] Lonny John MD [address] [place] [address] documented as of this encounter Visit Diagnoses Diagnosis Opioid dependence, uncomplicated (CMS/HCC) documented in this encounter Care Teams Cigar Patcher Relationship Specialty Start Date End Date Darinel Metcalf MD [address] [place] [address] PCP - General Internal Medicine 09/26/19 documented as of this encounter
--- OUTSIDE RECORDS SUMMARY | 2025-01-28 09:45 | XMS_ITS | Encounter Summary ---
Author Organization [employer] Address [address] [facility] 7 [place] [address] Care Team Providers Care Real Estate Assessor Name Role Phone Darinel Metcalf MD Primary Care Prov ider Reason for Visit * Reason Onset Date Comments chart prep 01/23/2025 Encounter Details Date Type Department Care Team ([facility] Contact Info) Description 01/23/2025 Telephone [facility] [address] [place], [place] [phone] Darinel Metcalf MD [address] [place] [address] chart prep Social History Tobacco Use Types Packs/Day Years [...] AM EDT documented as of this encounter Miscellaneous Notes * Telephone Encounter - Kate Gonsalves [place] - 01/23/2025 2:52 PM EDT Chart Prep Labs: done Images: done Referrals: complete Vaccines due: Covid, Flu, PCV20, Tdap, Hep B, Zoster, HIB, and MMR Screenings: colonoscopy Overdue care gaps: SBIRT and Disability screen documented in this encounter Plan of Treatment Upcoming Encounters Date Type Department Care Team (Late st Contact Info) Description 02/02/2025 1:30 PM EDT Office Visit [facility] [address] [place] [address] Lonny John MD [address] [place] [address] 03/30/2025 2:30 PM EST Office Visit [facility] [address] [place] [address] Lonny John MD [address] [place] [address] documented as of this encounter Goals Goal Patient Goal Type Associated Problems Recent Progress Patient-Stated? Author Increase coping skills to promote long-term recovery and improve ability to perform daily activities General No María Chandler RN documented as of this encounter Visit Diagnoses Not on filedocumented in this encounter Additional Health Concerns Assessment Noted Time PHQ-9 Depression Total Score: 0 10/22/19 25 10:00 AM EDT documented as of this encounter Care Teams Real Estate Assessor Relationship Specialty Start Date End Date BowerDarinel Franco MD [address] [place] [address] PCP - General Internal Medicine 09/26/19 documented as of this encounter
[2025-01-28 14:33] LABS: MANUAL DIFF FLAG NO
[2025-01-28 14:38] LABS: Hematocrit 54.1 % (42.0-52.0); Hemoglobin 16.1 g/dl (14.0-18.0); Imm Gran Abs Auto 0.03 X10*3/uL (0.00-0.03); Imm Gran Pct Auto 0.3 % (0.0-0.4); Lymphocytes Absolute Auto 2.9 X10*3/uL (1.2-4.9); Mean Corpuscular HGB Conc 29.8 g/dl (31.0-36.0); Mean Corpuscular Hemoglobin 21.2 pg (27.0-33.0); Mean Corpuscular Volume 71.3 fL (80.0-98.0); NRBC Abs Auto 0.000 X10*3/uL (0.0-0.012); NRBC Pct Auto 0.0 /100WBC (0.0-0.2); Platelet Count 496 X10*3/uL (160-400); Red Blood Count 7.59 X10*6/uL (4.60-5.80); White Blood Count 10.6 X10*3/uL (4.8-10.8)
[2025-01-28 15:26] LABS: Alanine Aminotransferase 36 U/L (0-40); Albumin Level 4.3 g/dL (3.5-5.0); Alkaline Phosphatase 58 U/L (39-117); Anion Gap 12 (12-20); Aspartate Amino Transferase 48 U/L (5-37); Blood Urea Nitrogen 25 mg/dL (9-16); Calcium 9.1 mg/dL (8.4-10.2); Carbon Dioxide 31 mmol/L (22-29); Chloride 101 mmol/L (96-108); Cholesterol 131 mg/dL (<200); Estimated Glomerular Filt Rate 58; HDL Cholesterol 29 mg/dL (>40); PSA,Total (Free>4and<10) 1.48 ng/mL (0.00-4.00); Potassium 4.3 mmol/L (3.3-5.1); Sodium 140 mmol/L (135-145); Total Protein 7.1 g/dL (6.5-8.0); Triglycerides 72 mg/dL (<150)
[2025-01-29 04:51] LABS: HIV Num 1 0.06 S/CO (0.00-0.99); ~HepC Num1 0.08 S/CO (0.00-0.79); ~Hepatitis C Antibody Nonreactive (Nonreactive)
[2025-02-03 14:54] LABS: Testosterone, Free 569.3 pg/mL (35.0-155.0)
== END 2025-01-28 08:41 | disposition home or self-care (01) ==
LOC: HO.CHCLDS 08:40
PROVIDERS: Visit Provider Internal Medicine
DX: Z11.4 Encounter for screening for human immunodeficiency virus [HIV] (principal); I50.9 Heart failure, unspecified; Z11.59 Encounter for screening for other viral diseases
CPT/HCPCS: 36415; 80053; 80061; 84153; 84402; 84403; 84443; 85025; 86803; 87389

== ENCOUNTER 2025-03-06 13:58 | Outpatient (REF) | payer MEDICAID, SELFPAY ==
--- OUTSIDE RECORDS SUMMARY | 2025-03-06 14:49 | XMS_ITS | Encounter Summary ---
Author Organization [employer] Address [address] [facility] 7t [place] [address] Care Team Providers Care Spiral Winder Name Role Phone Darinel Metcalf MD Primary Care Prov ider Encounter Details Date Type Department Care Team ([facility] st Contact Info) Description 03/04/2025 Orders Only [facility] [address] [place], [place] [phone] Darinel Metcalf MD [address] [place] [address] Low mean corpuscular volume (MCV) (Primary Dx) Social History Tobacco Use Types Packs/Day Years [...] Care Team (Late st Contact Info) Description 03/30/2025 2:30 PM EST Office Visit [facility] [address] [place] [address] Lonny Jonh MD [address] [place] [address] Scheduled Orders Name Type Priority Associated Diagnoses Orde r Schedule Iron And Total Iron Binding Capacity Lab Routine Low mean corpuscular volume (MCV) Expected: 03/04/2025, Expires: 03/04/2026 Vitamin B12 (Cobalamin) and Folate Panel, Serum Lab Routine Low mean corpuscular volume (MCV) Expected: 03/04/2025 (Approximate), Expires: 03/04/2026 documented as of this encounter Goals Goal Patient Goal Type Associated Problems Recent Progress Patient-Stated? Author Increase coping skills to promote long-term recovery and improve ability to perform daily activities General María Carrasco RN documented as of this encounter Visit Diagnoses Diagnosis Low mean corpuscular volume (MCV)- Primary documented in this encounter Additional Health Concerns Assessment Noted Time PHQ-9 Depression Total Score: 0 10/22/19 25 10:00 AM EDT documented as of this encounter Care Teams Spiral Winder Relationship Specialty Start Date End Date Darinel Metcalf MD [address] [place] [address] PCP - General Internal Medicine 09/26/19 documented as of this encounter
--- OUTSIDE RECORDS SUMMARY | 2025-03-06 14:49 | XMS_ITS | Encounter Summary ---
Author Organization [employer] Address [address] [facility] 7 [place] [address] Care Team Providers Care Carbon Coating Machine Operator Name Role Phone Darinel Metcalf MD Primary Care Prov ider Reason for Visit * Reason Comments Med Refill Encounter Details Date Type Department Care Team (Late st Contact Info) Description 02/21/2024 Refill [facility] [address] [place] [address] Renetta Damon MD [address] [place] [address] Opioid dependence, uncomplicated (CMS/HCC) Social History Tobacco [...] Description 03/30/2025 2:30 PM EST Office Visit [facility] [address] [place] [address] Lonny John MD [address] [place] [address] documented as of this encounter Visit Diagnoses Diagnosis Opioid dependence, uncomplicated (CMS/HCC) (HCC) documented in this encounter Care Teams Carbon Coating Machine Operator Relationship Specialty Start Date End Date Darinel Metcalf MD [address] [place] [address] PCP - General Internal Medicine 09/26/19 documented as of this encounter
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
--- OUTSIDE RECORDS SUMMARY | 2025-03-06 14:49 | XMS_ITS | Encounter Summary ---
Author Organization [employer] Address [address] [facility] 7 [place] [address] Care Team Providers Care Behavioral Health Associate Name Role Phone Darinel Metcalf MD Primary Care Prov ider Reason for Visit * Reason Onset Date Comments Med Refill 03/01/2025 Encounter Details Date Type Department Care Team (Late st Contact Info) Description 03/01/[address] [facility]S [address] [place] [address] Darinel Metcalf MD [address] [place] [address] Social History Tobacco Use Types Packs/Day Years [...] Description 03/30/2025 2:30 PM EST Office Visit [facility]S [address] [place], [place] [phone] Lonny John MD [address] [place] [address] documented as of this encounter Goals Goal [...] documented as of this encounter Care Teams Behavioral Health Associate Relationship Specialty Start Date End Date Darinel Metcalf MD [address] [place], [place] [phone] PCP - General Internal Medicine 09/26/19 documented as of this encounter
--- OUTSIDE RECORDS SUMMARY | 2025-03-06 14:49 | XMS_ITS | Encounter Summary ---
Author Organization [employer] Address [address] [facility] 7 [place] [address] Care Team Providers Care Cellar Pumper Name Role Phone Darinel Metcalf MD Primary Care Prov ider Reason for Visit * Reason Comments Med Refill Encounter Details Date Type Department Care Team (Late st Contact Info) Description 11/28/2024 Refill [facility] [address] [place] [address] Darinel Metcalf MD [address] [place] [address] Social History Tobacco Use Types Packs/Day Years [...] Description 03/30/2025 2:30 PM EST Office Visit [facility] [address] [place] [address] Lonny John MD [address] [place] [address] documented as of this encounter Goals Goal [...] documented as of this encounter Care Teams Cellar Pumper Relationship Specialty Start Date End Date Darinel Metcalf MD [address] [place] [address] PCP - General Internal Medicine 09/26/19 documented as of this encounter
--- OUTSIDE RECORDS SUMMARY | 2025-03-06 14:49 | XMS_ITS | Clinical Summary ---
Author Organization [facility] Address [address] [facility] [address] [place] [address] Phone Care Team Providers Care Train Gateman Name Role Phone Sandra Beltrán MD Primary Care Provider [phone] Allergies No known active allergies Medications erythromycin [...] VACCINE (#1) 2024 COVID-19 VACCINE (1 - 2024-2 6 season) 2025 RSV VACCINE (1 - 1-dose 75+ series) 10/18/2043 HEPATITIS A VACCINES Aged Out No long [...] topic Medical Devices Not on file [place] [place] [address] [employer] LIMITED NETWORK HMO NETWORK O O NETWORK O [employer] #2 LIMITED NETWORK HMO [employer] #2 LIMITED NETWORK HMO [facility] #2 LIMITED NETWORK HMO [employer] #[address] [place] [address] [place] [address] NETWORK HMO [employer] Care Teams Train Gateman Relationship Specialty Start Date End Date Sandra Beltrán MD [address] [place] [id number] PCP - General 06/13/21 Additional Source Comments The information contained in this document represents components of the legal health record. It is not the complete legal health record.[facility]
--- OUTSIDE RECORDS SUMMARY | 2025-03-06 14:49 | XMS_ITS | Encounter Summary ---
Author Organization [facility] Address [address] [facility] [address] [place] [address] Phone Care Team Providers Care Undercollar Baster Name Role Phone Sandra Beltrán MD Primary Care Provider [phone] Encounter Details Date Type Department Care Team (Late st Contact Info) Description 12/07/2021 Procedure Pass [facility], Ct Scan - [address] [address] Social History Tobacco Use Types Packs/Day Years [...] 11:36 AM EDT Kitty Deleon RN * [place] Suicide Severity Rating Scale (Screener/Recent Self-Report) Question [...] on filedocumented in this encounter Care Teams Undercollar Baster Relationship Specialty Start Date End Date Sandra Beltrán MD [address] [place] [address] PCP - General 06/13/21 documented as of this encounter Additional Source Comments The information contained in this document represents components of the legal health record. It is not the complete legal health record.[facility]
--- OUTSIDE RECORDS SUMMARY | 2025-03-06 14:49 | XMS_ITS | Encounter Summary ---
Author Organization [employer] Address [address] [facility] 7t [place] [address] Care Team Providers Care Deck And Hull Assembler Name Role Phone Darinel Metcalf MD Primary Care Prov ider Reason for Visit * Reason Onset Date Comments Med Refill 02/26/2025 Encounter Details Date Type Department Care Team (Late st Contact Info) Description 02/26/2025 Refill [facility] [address] [place] [address] Lonny John MD [address] [place] [address] Opioid dependence, uncomplicated (CMS/HCC) ([facility]) Social History Tobacco Use Types Packs/Day Years [...] Description 03/30/2025 2:30 PM EST Office Visit [facility] [address] [place], [place] [phone] Lonny John MD [address] [place], [place] [phone] documented as of this encounter Goals Goal Patient Goal Type Associated Problems Recent Progress Patient-Stated? Author Increase coping skills to promote long-term recovery and improve ability to perform daily activities General No María Chandler RN documented as of this encounter Visit Diagnoses Diagnosis Opioid dependence, uncomplicated (CMS/HCC) (HCC) documented in this encounter Additional Health Concerns Assessment Noted Time PHQ-9 Depression Total Score: 0 10/22/19 25 10:00 AM EDT documented as of this encounter Care Teams Deck And Hull Assembler Relationship Specialty Start Date End Date Darinel Metcalf MD [address] [place], [place] [phone] PCP - General Internal Medicine 09/26/19 documented as of this encounter
--- OUTSIDE RECORDS SUMMARY | 2025-03-06 14:49 | XMS_ITS | Encounter Summary ---
Author Organization [employer] Address [address] [place] [address] 7 [place] [address] Care Team Providers Care Field Machinist Name Role Phone Darinel Metcalf MD Primary Care Prov ider Encounter Details Date Type Department Care Team ([facility] Contact Info) Description 12/26/2023 Orders Only [facility] [address] [place] [phone] Renetta Damon MD [address] [place] [address] Opioid dependence, uncomplicated (CMS/HCC) Social History Tobacco [...] Department Care Team (Late Contact Info) Description 03/30/2025 2:30 PM EST Office Visit [facility] [address] [place], [place] [phone] Lonny John MD [address] [place] [address] documented as of this encounter Visit Diagnoses Diagnosis Opioid dependence, uncomplicated (CMS/HCC) (HCC) documented in this encounter Care Teams Field Machinist Relationship Specialty Start Date End Date Darinel Metcalf MD [address] [place] [address] PCP - General Internal Medicine 09/26/19 documented as of this encounter
--- OUTSIDE RECORDS SUMMARY | 2025-03-06 14:49 | XMS_ITS | Encounter Summary ---
Author Organization [employer] Address [address] [facility] 7t [place] [address] Care Team Providers Care Student Specialist Name Role Phone Darinel Metcalf MD Primary Care Prov ider Encounter Details Date Type Department Care Team ([facility] Contact Info) Description 03/04/2025 Telephone [facility] [address] [place], [place] [phone] Darinel Metcalf MD [address] [place] [address] Social History Tobacco Use Types Packs/Day Years [...] encounter Miscellaneous Notes * Telephone Encounter - Katie Jensen RN - 03/05/2025 11:49 AM EDT late entry ~Secure message sent to provider to review labs and send recommendations. Provider stated he reviewed the labs and called and discussed with patient. * Telephone Encounter - Darinel Franz MD - 03/04/2025 2:16 PM EDT I spoke with patient regarding blood test results, will order iron/vit b12 levels, follow up with results documented in this encounter Plan of Treatment Upcoming Encounters Date Type Department Care Team (Late st Contact Info) Description 03/30/2025 2:30 PM EST Office Visit [facility] [address] [place] [address] Lonny John MD [address] [place] [address] documented as of this encounter Goals Goal Patient Goal Type Associated Problems Recent Progress Patient-Stated? Author Increase coping skills to promote long-term recovery and improve ability to perform daily activities General No Jaclyn Chandlerorah, DIANA documented as of this encounter Visit Diagnoses Not on filedocumented in this encounter Additional Health Concerns Assessment Noted Time PHQ-9 Depression Total Score: 0 10/22/19 25 10:00 AM EDT documented as of this encounter Care Teams Student Specialist Relationship Specialty Start Date End Date Darinel Metcalf MD [address] [place] [phone] PCP - General Internal Medicine 09/26/19 documented as of this encounter
--- OUTSIDE RECORDS SUMMARY | 2025-03-06 14:50 | XMS_ITS | Clinical Summary ---
Author Organization [employer] Address [address] [facility] [address] [place] [address] Care Team Providers Care Vehicle Monitor Technician Name Role Phone Darinel Metcalf MD Primary Care Prov ider Allergies No known active allergies Medications Multiple Vitamins-Mineral s (MENS MULTIPLUS PO) Mens MultiPlus Active naloxone (Narcan) 4 mg/0.1 mL nasal spray Administer 0.1 mL into affected nostril(s). 02/05/20 20 Active omeprazole OTC (PriLOSEC OTC) 20 MG EC tablet 1 tablet in the morning. Active clotrimazole (Lotrimin) 1 % cream Apply topically 2 times daily. 90 g 3 11/11/19 25 Active tadalafil (Cialis) 10 MG tablet Take 1 tablet (10 mg) by mouth if needed each day for erectile dysfunction. 60 tablet 3 01/28/20 25 Active Buprenorphine HCl-Naloxone HCl (Suboxone) 8-2 MG SL filmIndications: Opioid dependence, uncomplicated (CMS/HCC) (HCC) Place 1 Film under the tongue 2 times daily. Do not start before February 02, 2025. 56 Film 1 02/03/20 25 2024 Active betamethasone valerate (Valisone) 0.1 % cream Apply topically if needed in the morning and at bedtime (dryness). 45 g 2 02/28/20 25 Active betamethasone valerate (Valisone) 0.1 % cream Apply topically if needed in the morning and at bedtime (dryness). 45 g 2 10/22/19 25 2024 Discontinued(R eorder (will not trigger notification to Pharmacy)) betamethasone valerate (Valisone) 0.1 % cream Apply topically if needed in the morning and at bedtime (dryness). 45 g 2 02/13/20 25 2024 Discontinued(R eorder (will not trigger notification to Pharmacy)) Active Problems Problem Noted Date Diagnosed Date Drug-induced erectile dysfunction 11/10/2024 Assessment & Plan (01/27/2025 9:38 AM EDT): Will change to cialis to be taken daily and to take an extra dose the day of activity, call back if not improving Assessment & Plan (11/10/2024 1:49 PM EDT): Patient noticed worsening of symptoms after metoprolol dose increased, he disscussed with symptoms with his filler shredder helper but the benefits of the treatment were [...] refer to GI Opioid type dependence, continuous ([facility]) Chronic congestive heart alexis lure, unspecified heart [...] Encounters Date Type Department Care Team Description 03/04/2025 Telephone [facility] [address] [place] [address] Darinel Metcalf MD 03/04/2025 Orders Only [facility] [address] [place] [address] Darinel Metcalf MD Low mean corpuscular volume (MCV) (Primary Dx) 03/01/2025 Refill [facility] [address] [place] [address] Darinel Metcalf MD 02/26/2025 Refill [facility] [address] [place] [address] Lonny John MD Opioid dependence, uncomplicated (CMS/HCC) (HCC) 02/25/2025 Refill [facility] [address] [place] [address] Darinel Metcalf MD 02/10/2025 Refill [facility] [address] [place] [address] Darinel Metcalf MD 02/02/2025 1:30 PM EDT Telemedicine [facility] [address] [place] [address] Lonny John MD Opioid dependence, uncomplicated (CMS/HCC) (Primary Dx); Elevated liver enzymes 02/02/2025 Travel 01/30/2025 Telephone [facility] [address] [place] [address] María Chandler RN 01/28/2025 Refill [facility] [address] [place] [address] María Chandler, RN Opioid dependence, uncomplicated (CMS/HCC) 01/27/2025 9:00 AM EDT Office Visit [facility] [address] [place] [address] Darinel Metcalf MD Chronic congestive heart failure, unspecified heart failure type ([facility]) (Primary Dx); Drug-induced erectile dysfunction 01/27/2025 Travel 01/23/2025 Telephone [facility] [address] [place] [address] Darinel Metcalf MD chart prep 01/20/2025 Patient Outreach [facility] [address] [place] [phone] Darinel Metcalf MD Pre-visit Planning (SDOH screening negative and Tobacco screening negative) 01/04/2025 Refill [facility] [address] [place] [phone] Katie Salgado MD 12/22/2024 Telephone [facility] [address] [place] [address] Darinel Metcalf MD No Show 12/22/2024 Telephone [facility] [address] [place] [address] Darinel Metcalf MD 12/22/2024 Travel 12/19/2024 Telephone [facility] [address] [place] [address] Darinel Metcalf MD chart prep from Last 3 Months Immunizations Immunization Administration [...] Description 03/30/2025 2:30 PM EST Office Visit [facility] [address] [place] [address] Lonny John MD [address] [place] [address] Health Maintenance Due Date Last Done Comments CT Colonography 1968 Colonoscopy 1968 Colorectal Cancer Screening 1968 FIT DNA/Cologuard 1968 FIT 1968 FOBT 1968 Sigmoidoscopy 1968 HIB Vaccines (1 of 1 - Risk 1-dose series) 01/17/1970 Meningococcal Vaccine (1 - Risk 2-dose series) 1970 Meningococcal B Vaccine (1 o f 5 - Increased Risk) 1978 Hepatitis B Vaccines (1 of 3 - [...] Screening 01/27/2026 01/27/2025 Disability Screening 01/27/2026 01/27/2025 Lipid Panel 01/28/2030 01/28/2025 RSV Patients and Patients Aged 60 years or older (1 - 1-dose 75+ series) 10/18/2043 HIV Screening Completed 01/28/2025 Hepatitis C Screening Completed 01/28/2025 HPV Vaccines Aged Out No longer eligi [...] to perform daily activities General María Carrasco, golf instructor Procedure Name Priority Date/Time Associated Diagnosis Comments TESTOSTERONE, FREE (DIALYSIS) AND TOTAL,MS Routine 01/28/2025 8:42 AM EDT Chronic congestive heart failure, unspecified heart failure type (CMS/HCC) PSA, TOTAL WITH REFLEX TO PSA, FREE Routine 01/28/2025 8:42 AM EDT Chronic congestive heart failure, unspecified heart failure type (CMS/HCC) HEPATITIS C AB W/REFL TO HCV RNA, QN, PCR Routine 01/28/2025 8:42 AM EDT Chronic congestive heart failure, unspecified heart failure type (CMS/HCC) HIV 1/2 ANTIGEN/ANTIBODY, FOURTH GENERATION W/RFL Routine 01/28/2025 8:42 AM EDT Chronic congestive heart failure, unspecified heart failure type (CMS/HCC) TSH W/REFLEX TO FT4 Routine 01/28/2025 8 :42 AM EDT Chronic congestive heart failure, unspecified heart failure type (CMS/HCC) LIPID PANEL, STANDARD Routine 01/28/2025 8:42 AM EDT Chronic congestive heart failure, unspecified heart failure type (CMS/HCC) COMPREHENSIVE METABOLIC PANEL Routine 01/28/2025 8:42 AM EDT Chronic congestive heart failure, unspecified heart failure type (CMS/HCC) CBC WITH AUTO DIFFERENTIAL Routine 01/28/2025 8:42 AM EDT Chronic congestive heart failure, unspecified heart failure type (CMS/HCC) from Last 3 Months Results * TSH W/Reflex to FT4 (01/28/2025 8:42 AM EDT) TSH reflex Free T4 0.65 0.32 - 4.0 uIU/mL [facility] Blood Venous blood specimen / Unknown 01/28/2025 8:42 AM EDT 01/28/2025 2:35 PM EDT Darinel Franz MD LAB BLOOD ORDERABL ES Final Result Performing Organization Address [facility] Co de Phone Number [facility] [address] [place] [phone] * PSA, Total With Reflex to PSA, Free (01/28/2025 8:42 AM EDT) PSA,Total (Free>4and<10) 1.48 0.00 - 4.00 ng/mL [facility] Comment:A Free PSA was not p erformed: The percentage of Free PSA can be used to enhance the differentiation of prostate cancer from benign prostatic disease in subjects whose PSA levels are between 4.0 and 10.0 ng/mL. For subjects whose PSA levels are below 4.0 or above 10.0 ng/mL, the risk of prostate cancer is determined on the basis of the PSA alone. Therefore the % Free PSA is recommended only for those subjects whose PSA levels are between 4.0 and 10.0 ng/mL.PSA methodology: Jones Alinity i ChemiluminescentMicroparticle Immunoassay (CMIA) 01/28/2025 8:42 AM EDT 01/28/2025 2:35 PM EDT Darinel Franz MD LAB BLOOD ORDERABL ES Final Result Performing Organization Address [facility]/ZIP Co de Phone Number [facility] [address] [place] [phone] * (ABNORMAL) CBC auto differential (01/28/2025 8:42 AM EDT) White Blood Count 10.6 4.8 - 10.8 X10*3/uL [facility] Red Blood Count 7.59(H) 4.60 - 5.80 X10*6/uL [facility] Hemoglobin 16.1 14.0 - 18.0 g/dl [facility] Hematocrit 54.1(H) 42.0 - 52.0 % [facility] Mean Corpuscular Volume 71.3(L) 80.0 - 98.0 fL [facility] Mean Corpuscular Hemoglobin 21.2(L) 27.0 - 33.0 pg [facility] Mean Corpuscular HGB Conc 29.8(L) 31.0 - 36.0 g/dl [facility] Red Cell Distribution Width 21.5(H) 11.0 - 16.0 % [facility] Platelet Count 496(H) 160 - 400 X10*3/uL [facility] Mean Platelet Volume 10.4 9.4 - 12.4 fL [facility] Neutrophils Percent Auto 59.0 45 - 73 % [facility] Imm Gran Pct Auto 0.3 0.0 - 0.4 % [facility] Lymphocytes Percent Auto 27.3 20 - 40 % [facility] Monocytes Percent Auto 10.3 2 - 11 % [facility] Eosinophils Percent Auto 2.0 0 - 4 % [facility] Basophils Percent Auto 1.1 0 - 2 % [facility] NRBC Pct Auto 0.0 0.0 - 0.2 /100WBC [facility] Neutrophils Absolute Auto 6.3 2.0 - 8.3 x10*3/uL [facility] Imm Gran Abs Auto 0.03 0.00 - 0.03 X10*3/uL [facility] Lymphocytes Absolute Auto 2.9 1.2 - 4.9 X10*3/uL [facility] Monocytes Absolute Auto 1.1 0.1 - 1.2 X10*3/uL [facility] Eosinophils Absolute Auto 0.2 0.0 - 0.4 X10*3/uL [facility] Basophils Absolute Auto 0.1 0.0 - 0.2 X10*3/uL [facility] NRBC Abs Auto 0.000 0.0 - 0.012 X10*3/uL [facility] Blood Venous blood specimen / Unknown 01/28/2025 8:42 AM EDT 01/28/2025 2:28 PM EDT Darinel Franz MD LAB BLOOD ORDERABL ES Final Result Performing Organization Address [facility]/ZIP Co de Phone Number [facility] [address] [place] [phone] * Hepatitis C Antibody with Reflex to HCV, RNA, Quantitative, Real-Time PCR (01/28/2025 8:42 AM EDT) Hepatitis C Antibody Nonreactive Nonreactive [facility] Comment:Antibodies to HCV no t detected; does not exclude early acuteHCV infection. Blood Venous blood specimen / Unknown 01/28/2025 8:42 AM EDT 01/28/2025 2:35 PM EDT Darinel Franz MD LAB BLOOD ORDERABL ES Final Result Performing Organization Address [facility] Co de Phone Number [facility] [address] [place] [phone] [phone] * HIV-1/2 Antigen and Antibodies, Fourth Generation, with Reflexes (01/28/2025 8:42 AM EDT) HIV AB/AG Nonreactive Nonreactive [facility] Comment:HIV-1 p24 Ag and/or HIV-1/HIV-2 Ab not detected.A test result that is nonreactive does not exclude thepossibility of exposure to or infection with HIV-1 and/orHIV-2. Nonreactive results in this assay for individualswith prior exposure to HIV-1 and/or HIV-2 may be due toantigen and antibody levels that are below the limit ofdetection of this assay.The Ingenic HIV Ag/Ab Combo assay result andsupplemental assay results should be interpreted inconjunction with the patient's clinical presentation,history and other laboratory results. If the results areinconsistent with clinical evidence, additional testing issuggested to confirm the result. Blood Venous blood specimen / Unknown 01/28/2025 8:42 AM EDT 01/28/2025 2:35 PM EDT Darinel Franz MD LAB BLOOD ORDERABL ES Final Result [facility] [address] [place] [phone] [phone] * (ABNORMAL) Testosterone, Free (Dialysis) And Total, MS (01/28/2025 8:42 AM EDT) Testosterone, Total 1725(A) 250 - 1100 ng/dL [facility] Comment:For additional infor vinod, please refer [email or web address]/[email or web address](This link is being provided for informational/educational purposes only.)This test was developed and its analytical performancecharacteristics have been determined by [employer], [place]. It hasnot been cleared or approved by the U.S. Food and DrugAdministration. This assay has been validated pursuantto the CLIA regulations and is used for clinicalpurposes. Testosterone, Free 569.3(A ) 35.0 - 155.0 pg/mL [facility] Comment:This test was develo ped and its analytical performancecharacteristics have been determined by [employer] [place]. It hasnot been cleared or approved by the U.S. Food and DrugAdministration. This assay has been validated pursuantto the CLIA regulations and is used for clinicalpurposes.THIS TEST WAS PERFORMED AT:[employer] [id number] [place] [id number] HOLDEN MD,PHD Blood Venous blood specimen / Unknown 01/28/2025 8:42 AM EDT 01/28/2025 2:35 PM EDT us Darinel Franz MD LAB BLOOD ORDERABL ES Final Result Performing Organization Address [facility] Co de Phone Number [facility] [address] [place] [phone] * (ABNORMAL) Lipid Panel, Standard (01/28/2025 8:42 AM EDT) Triglycerides 72 <150 mg/dL [facility] Comment:Desirable Triglyceri de: less than 150 mg/dLBorderline High Triglyceride 150-199 mg/dLHigh Triglyceride: 200-499 mg/dLVery High Triglyceride: greater than or equal to 5OO mg/dL Cholesterol 131 <200 mg/dL [facility] Comment:Desirable Cholestero l: less than 200 mg/dLBorderline High Cholesterol: 200-239 mg/dLHigh Cholesterol: greater than 239 mg/dL LDL Cholesterol Calculated 88 <100 mg/dL [facility] Comment:Desirable LDL: less than 100 mg/dLNear Optimal/Above Optimal LDL: 110- 129 mg/dLBorderline High LDL: 130-159 mg/dLHigh LDL: 160-189 mg/dLVery High LDL: greater than or equal to 190 mg/dL HDL Cholesterol 29(L) >40 mg/dL [facility] Comment:Desirable HDL: great er than 40 mg/dL Note: This HDL assay may give artificially low results in patients with liver disease. Blood Venous blood specimen / Unknown 01/28/2025 8:42 AM EDT 01/28/2025 2:35 PM EDT Darinel Franz MD LAB BLOOD ORDERABL ES Final Result Performing Organization Address [facility]/ZIP Co de Phone Number [facility] [address] [place] [phone] * (ABNORMAL) Comprehensive Metabolic Panel (01/28/2025 8:42 AM EDT) Sodium 140 135 - 145 mmol/L [facility] Potassium 4.3 3.3 - 5.1 mmol/L [facility] Chloride 101 96 - 108 mmol/L [facility] Carbon Dioxide 31(H) 22 - 29 mmol/L [facility] Anion Gap 12 12 - 20 [facility] Urea Nitrogen (BUN) 25(H) 9 - 16 mg/dL [facility] Creatinine, Serum 1.28 0.5 - 1.4 mg/dL [facility] Estimated Glomerular Filt Rate 58 [facility] Comment:Chronic Kidney Disea se: Estimated GFR < 60 mL/min/1.32k9Vrfsae Kidney Disease: Estimated GFR < 15 mL/min/1.73m2 Glucose 79 60 - 115 mg/dL [facility] Calcium 9.1 8.4 - 10.2 mg/dL [facility] Bilirubin, Total 0.6 0.0 - 1.0 mg/dL [facility] Aspartate Amino Transferase 48(H) 5 - 37 U/L [facility] Alanine Aminotransferase 36 0 - 40 U/L [facility] Total Protein 7.1 6.5 - 8.0 g/dL [facility] Albumin Level 4.3 3.5 - 5.0 g/dL [facility] Alkaline Phosphatase 58 39 - 117 U/L [facility] Blood Venous blood specimen / Unknown 01/28/2025 8:42 AM EDT 01/28/2025 2:35 PM EDT us Darinel Franz MD LAB BLOOD ORDERABL ES Final Result Performing Organization Address [facility] Co de Phone Number [facility] [address] [place] [phone] from Last 3 Months Insurance [facility] [employer] C[employer] Care Teams Vehicle Monitor Technician Relationship Specialty Start Date End Date Darinel Metcalf MD [address] [place] [phone] PCP - General Internal Medicine 09/26/19
[2025-03-06 18:35] LABS: Alanine Aminotransferase 47 U/L (0-40); Albumin Level 4.6 g/dL (3.5-5.0); Alkaline Phosphatase 74 U/L (39-117); Aspartate Amino Transferase 44 U/L (5-37); Iron 25 mcg/dL (45-160); Percent Iron Saturation 7 % (15-50); Total Iron Binding Capacity 354 mcg/dL (228-428); Total Protein 7.5 g/dL (6.5-8.0); Unsaturated Iron Binding 329 ug/dL
[2025-03-06 18:59] LABS: Folate 14.0 ng/mL (> or = 4.0); Vitamin B12 758 pg/mL (200-900)
[2025-03-07 07:53] LABS: HBS Num1 0.00 mIU/mL (0-7.99); HBc Num1 0.11 S/CO (0.00-0.79); HBsAGNum1 0.36 S/CO (0.00-0.99); Hepatitis A Antibody IgM 0.20 Index (0-0.79); Hepatitis B Surface Antigen Negative (Negative); ~HepC Num1 0.09 S/CO (0.00-0.79); ~Hepatitis A Antibody IgM Nonreactive (Nonreactive); ~Hepatitis B Surface Antibody NONREACTIVE (Nonreactive); ~Hepatitis C Antibody Nonreactive (Nonreactive)
[2025-03-13 08:08] LABS: ~Hepatitis A Antibody IgG 0.35 S/CO (0.00-0.99)
== END 2025-03-06 13:59 | disposition home or self-care (01) ==
LOC: HO.CHCLDS 13:58
PROVIDERS: PCP Internal Medicine; Visit Provider Family Medicine
DX: R74.8 Abnormal levels of other serum enzymes (principal); F11.20 Opioid dependence, uncomplicated; R71.8 Other abnormality of red blood cells; Z11.59 Encounter for screening for other viral diseases
CPT/HCPCS: 36415; 80076; 82607; 82746; 83540; 86704; 86706; 86708; 86709; 86803; 87340